=== PATIENT | female | born 1995 | race American Indian/Alaskan Native ===

== ENCOUNTER 2020-10-11 17:21 | Emergency (ER) | payer SELFPAY ==
[2020-10-11 18:45] VITALS: BP 116/68
== END 2020-10-11 20:00 | disposition left against medical advice (07) ==
LOC: ED 17:21
DX: Z00.00 Encounter for general adult medical examination without abnormal findings (principal); Z53.21 Procedure and treatment not carried out due to patient leaving prior to being seen by health care provider